=== PATIENT | female | born 1965 | race Caucasian/White ===

== ENCOUNTER 2019-10-01 09:20 | Outpatient (CLI) | payer BC, SELFPAY ==
--- NOTE | ~2019-10-01 | MM_ITS ---
EXAMINATION: MM screening silvestre BI w talia HISTORY: Screening mammogram TECHNIQUE: Craniocaudal and mediolateral oblique 3-D tomosynthesis images were obtained and synthetic 2-D images were generated. CAD analysis was submitted and interpreted. COMPARISON: Comparison to multiple prior studies sequentially, with oldest reviewed study dated 03/31. BREAST PARENCHYMAL COMPOSITION: Comparison to multiple prior studies sequentially, with oldest review ed study dated 04/16/2014. FINDINGS: There is no evidence of suspicious mass, calcification, or architectural distortion to sugg est malignancy in either breast. There has been no suspicious interval change. IMPRESSION: 1. No mammographic evidence of malignancy. 2. Recommend routine screening mammography in one year. BI-RADS Category 1: Negative Reviewed, dictated and finalized at location A.
== END 2019-10-01 09:21 | disposition home or self-care (01) ==
LOC: ANHIMG 09:27
PROVIDERS: Visit Provider Obstetrics & Gynecology
DX: Z12.31 Encounter for screening mammogram for malignant neoplasm of breast (principal)
CPT/HCPCS: 77063; 77067

== ENCOUNTER 2020-10-27 07:26 | Outpatient (CLI) | payer OTHER, SELFPAY ==
--- NOTE | ~2020-10-27 | MM_ITS ---
EXAMINATION: MM screening silvestre BI w talia HISTORY: Screening TECHNIQUE: Craniocaudal and mediolateral oblique 3-D tomosynthesis images were obtained and synthetic 2-D images were generated. CAD analysis was submitted and interpreted. COMPARISON: Comparison to multiple prior studies sequentially, with oldest reviewed study dated 06/2015. BREAST PARENCHYMAL COMPOSITION: The breasts are heterogeneously dense, which may obscure small masses . FINDINGS: There is no evidence of suspicious mass, calcification, or architectural distortion to sugg est malignancy in either breast. There has been no suspicious interval change. IMPRESSION: 1. No mammographic evidence of malignancy. 2. Recommend routine screening mammography in one year. BI-RADS Category 1: Negative Reviewed, dictated and finalized at location A.
== END 2020-10-27 07:27 | disposition home or self-care (01) ==
LOC: ANHIMG 07:28
PROVIDERS: Visit Provider Obstetrics & Gynecology
DX: Z12.31 Encounter for screening mammogram for malignant neoplasm of breast (principal)
CPT/HCPCS: 77063; 77067

== ENCOUNTER 2023-11-16 09:20 | Outpatient (CLI) | payer OTHER, SELFPAY ==
--- NOTE | ~2023-11-16 | MM_ITS ---
EXAMINATION: MM screening silvestre BI w talia HISTORY: Screening TECHNIQUE: Craniocaudal and mediolateral oblique 3-D tomosynthesis images were obtained and synthetic 2-D images were generated. CAD analysis was submitted and interpreted. COMPARISON: Comparison to multiple prior studies sequentially, with oldest reviewed study dated 06/2015. BREAST PARENCHYMAL COMPOSITION: Not dense: There are scattered areas of fibroglandular density. FINDINGS: There is no evidence of suspicious mass, calcification, or architectural distortion to sugg est malignancy in either breast. There has been no suspicious interval change. IMPRESSION: 1. No mammographic evidence of malignancy. 2. Recommend routine screening mammography in one year. BI-RADS Category 1: Negative Reviewed, dictated and finalized at location B.
== END 2023-11-16 09:21 | disposition home or self-care (01) ==
LOC: ANHIMG 09:21
PROVIDERS: PCP Family Medicine; Visit Provider Obstetrics & Gynecology
DX: Z12.31 Encounter for screening mammogram for malignant neoplasm of breast (principal)
CPT/HCPCS: 77063; 77067

== ENCOUNTER 2023-12-27 06:50 | Day surgery (SDC) | payer OTHER, SELFPAY ==
[2023-11-10 07:04] VITALS: BMI 25.0
[2023-12-14 08:07] VITALS: BMI 24.9
--- NOTE | 2023-12-26 10:06 | WPDANESEPPF ---
Anes - Initial Pre Proc Eval Procedure: Operation Date: 12/27/23 08:30 Proposed Procedures p Diagnostic Colonoscopy - Colin Lorenzo MD Date/Time: 12/26/23 10:06 Surgeon: Colin Lorenzo MD Pre Op Diagnosis: Family HX of polyps Patient Data Age: 58 Gender: F Height: 1.65 m Weight: 68 kg Allergies Allergy/AdvReac Type Severity Reaction Status Date / Time No Known Allergies Allergy Verified 12/27/23 07:08 Home Medications Medication Instructions Recorded Confirmed Type sodium,potassium,mag sulfates 17.5 See Rx Instructions PO .COMPLEX 11/09/23 12/14/23 Rx gram-3.13 gram-1.6 gram oral soln #354 mL (Suprep Bowel Prep Kit) Patient hx anesthesia problems: none Family hx anesthesia problems: none Results Review: All pre-operative results and documents have been reviewed as part of the pre-operative evaluation. [facility] Social History Social History Smoking status: Never smoker Alcohol intake: current Substance use: never Substance use type: does not use Living arrangements: with family Spiritual care concerns: No Anes - Eval Final PreProcedure Day of Procedure 12/26/23 10:06 Patient weight: overweight Heart: regular rate and rhythm Lungs: clear to auscultation Airway: Mallampati scale class II Neurological: alert and oriented Last oral intake: >/= 8 hours ASA classification: I Emergent: no Anesthetic plan: proceed Anesthesia type and monitoring: general GIVS and standard monitoring Results Review: All pre-operative results and documents have been reviewed as part of the pre-operative evaluation. Informed Consent: The patient's anesthetic plan and its attendant risks and benefits were discussed with the patient/family/POA. Questions were solicited and answers provided to the satisfaction of the patient/family/POA.
[2023-12-27 07:17] VITALS: BP 116/73; PULSE 83; RESP 20; TEMP 36.8; O2SAT 100
[2023-12-27] MEDS: LACTATED RINGERS 1,000 ML 150 ML IV CONT (07:38)
--- NOTE | 2023-12-27 07:53 | PM.HPGS ---
History of Present Illness History of Present Illness Consent: Risks, benefits, and alternatives have been discussed and questions answered. Patient agrees to proceed with procedure. Chief complaint: Family HX of polyps Narrative: Mery De Anda is a 58 year old female presents for screening colonoscopy. Patient's sister had colon polyps. Patient reports bowel movements are normal. Patient denies abdominal pain. She has had no bleeding. Previous colonoscopy in 2016 was unremarkable. Patient presents today for new patient screening. Review of Systems Review of Systems: All systems reviewed & are unremarkable except as noted in HPI and below PMFSH Social History Social History Smoking status: Never smoker Alcohol intake: current Substance use: never Substance use type: does not use Living arrangements: with family Spiritual care concerns: No Meds Home Medications and Allergies Home Medications Medication Instructions Recorded Confirmed Type sodium,potassium,mag sulfates 17.5 See Rx Instructions PO .COMPLEX 11/09/23 12/14/23 Rx gram-3.13 gram-1.6 gram oral soln #354 mL (Suprep Bowel Prep Kit) Allergies Allergy/AdvReac Type Severity Reaction Status Date / Time No Known Allergies Allergy Verified 12/27/23 07:08 Vital Signs Vital Signs - 24 hr 12/27/23 07:17 Temperature 98.2 F Pulse Rate 83 Respiratory Rate 20 Blood Pressure 116/73 Pulse Oximetry 100 Oxygen Delivery Room Air Exam Narrative: Physical exam reveals patient to be alert. Vital signs stable. HEENT exam is unremarkable. Patient is anicteric. Lungs are clear to auscultation and percussion. Is without murmur or extra sounds. Abdomen bowel sounds are present soft nontender with no organomegaly. Digital external rectal exam normal. Assessment and Plan Assessment and plan (1) Family history of colonic polyps: Code(s): Z83.719 - Family history of colon polyps, unspecified Status: Acute Assessment and Plan: Patient's sister had colon polyps. Plan for patient to have surveillance colonoscopy at 5 year intervals.
[2023-12-27 09:06] VITALS: BP 109/69; PULSE 70; RESP 16; O2SAT 100
[2023-12-27 09:16] VITALS: BP 107/80; BP 120/73; PULSE 54; PULSE 59; RESP 15; RESP 16; O2SAT 100
--- NOTE | 2023-12-27 11:34 | WPDANESPN ---
Anes - Prog Note Post-Op Date/Time: 12/27/23 11:34 Cardiovascular status: normal Respiratory status: normal Airway patency: baseline Mental status: baseline Post-Op hydration status: normal Vital Signs: Last Vital Signs Temp 36.8 C 12/27/23 07:17 Pulse 54 L 12/27/23 09:16 Resp 15 12/27/23 09:16 BP 120/73 12/27/23 09:16 Pulse Ox 100 12/27/23 09:16 O2 Del Method Room Air 12/27/23 09:16 Pain Score (VAS): 0 I/O: Intake & Output 12/26/23 12/27/23 12/27/23 23:59 07:59 15:59 Intake Total 500 Balance 500 Post-procedural complaints: none Patient Feedback: Patient satisfied with anesthetic care. Other Findings: Patient vital signs back to baseline. Patient denies nausea and vomiting. Patient's pain under control. Patient OK for discharge.
== END 2023-12-27 09:42 | disposition home or self-care (01) ==
PROVIDERS: PCP Family Medicine; Visit Provider Internal Medicine Gastroenterology
PROC: 0DJD8ZZ Inspection of Lower Intestinal Tract, Via Natural or Artificial Opening Endoscopic (ICD-10-PCS; CPT 45378; principal; 2023-12-27 08:30)
DX: Z83.718 Family history of other colon polyps (principal); K64.8 Other hemorrhoids
CPT/HCPCS: 45378

== ENCOUNTER 2024-12-30 13:20 | Emergency (ER) | payer OTHER, SELFPAY ==
[2024-12-30] VITALS (8 sets, daily range): BP systolic 108–135; BP diastolic 63–85; PULSE 67–87; RESP 9–23; TEMP 36.4; O2SAT 98–100
--- NOTE | ~2024-12-30 | XR_ITS ---
EXAMINATION: XR wrist LT 2V DATE: 12/30/2024 15:15 INDICATION: Postreduction left wrist fracture TECHNIQUE: Posteroanterior and lateral views of the left wrist were obtained. COMPARISON: none FINDINGS: Again seen is a comminuted fractures of the distal left radius with decrease in now for degree dorsal tilt of the distal articular surface. Approximately 8 mm dorsal displacement of the main distal fragment remains unchanged. On the current study there does appear to be a nondisplaced fracture plane extending to involve the distal articular surface without significant fracture gap or incongruity. Slight decrease in now 5 mm distal/radial distraction of an ulnar styloid avulsion fracture fragment. No new fractures identified. Wire mesh likely retraction devices about the thumb and fifth digit. IMPRESSION: 1. Decreased dorsal angulation with unchanged posterior displacement of a comminuted fractures of the distal left radius with nondisplaced intra-articular fracture plane which was not appreciated on the prior radiographs. 2. Decrease in now mild distraction of an ulnar styloid avulsion fracture. Reviewed, dictated and finalized at location A. IMPRESSION: 1. Decreased dorsal angulation with unchanged posterior displacement of a commi nuted fractures of the distal left radius with nondisplaced intra-articular fra cture plane which was not appreciated on the prior radiographs. 2. Decrease in now mild distraction of an ulnar styloid avulsion fracture.
--- NOTE | ~2024-12-30 | XR_ITS ---
EXAMINATION: XR wrist LT min 3V DATE: 12/30/2024 13:43 INDICATION: Left wrist injury TECHNIQUE: Posteroanterior, oblique, and lateral views of the left wrist were obtained. COMPARISON: none FINDINGS: Distal left radial fracture without definitive intra-articular component. This includes an oblique fracture plane extending across the distal metaphyseal region with comminution along the posterior cortex. The distal articular fragment is displaced 1 cm dorsally and dorsally angulated. There is also a radial angulation with with 1 degree radial inclination. A degree distal and radial distraction of an ulnar styloid avulsion fracture fragment. 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 IMPRESSION: 1. Dorsally displaced and angulated comminuted extra articular fracture of the distal left radius. 2. 8 mm distraction of an ulnar styloid avulsion fracture Reviewed, dictated and finalized at location A.
--- OUTSIDE RECORDS SUMMARY | 2024-12-30 13:22 | XMS_ITS | Clinical Summary ---
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 Gender Identity Not on file Sexual Orientation Not on file Plan of Treatment Health Maintenance Due Date Last Done Comments Cervical Cancer Screening Pa p Smear (Age 30 to 64) Every 3 Years 1967 Colorectal Cancer Screening Colonoscopy (10 Years) 1967 Annual Physical 1970 Hepatitis C 1985 DTaP, Tdap and Td Vaccines ( 1 - Tdap) 1986 Hepatitis B Vaccines (1 of 3 - 19+ 3-dose series) 1986 Cervical Cancer Screening Pa p with HPV Testing (Age 30 to 64) Every 5 Years 1997 Cervical Cancer Screening wi th HPV 1997 Mammogram Screening 2007 Pneumococcal Vaccine: 50+ Years (1 of 1 - PCV) 2017 Zoster Vaccines (1 of 2) 2017 COVID-19 Vaccine ( - 2023-2 5 season) 2023 05/08/2020, 04/17/2020 Meningococcal B Vaccine Aged Out No l onger eligible based on patient's age to complete this topic Meningococcal Vaccine Aged Out No anais suma eligible based on patient's age to complete this topic RSV Immunizations Under 20 Months Aged Out No longer eligible b ased on patient's age to complete this topic
--- OUTSIDE RECORDS SUMMARY | 2024-12-30 13:22 | XMS_ITS | Clinical Summary ---
Author Organization [facility] Address [address] [place] [address] Care Team Providers Care Ad Setter Name Role Phone Caesar Juarez MD Primary Care Provider Source Comments [facility],non-owned Affiliates and Associated Physician Practices is amultiple site organization consisting of ambulatory clinics and hospital sitesin [place], [place], [place] and [place]. This disclosure is being madepursuant to the Care Everywhere program and may not contain all information available regarding this patient. Last updated 18.[employer] Allergies No known active allergies Medications * Be aware that medications may not be up to date on this document. Alwaysverify current medications with the patient. Fluticasone Propionate (FLONASE ALLERGY RELIEF NA) Active Active Problems No known active problems Family History Medical History Relation Name Comments Arthritis - Osteo Father Other - Cardiac Father A FIB Arthritis - Osteo Mother Relation Name Status Comments Father Mother Social History Tobacco Use Types Packs/Day Years Used Date Smoking Tobacco: Never Smokeless Tobacco: Never Comments No Sex and Gender Information Value Date Recorded Sex Assigned at Not on file Legal Sex Female 8:17 AM CDT Gender Identity Not on file Sexual Orientation Not on file Last Filed Vital Signs Vital Sign Reading Time Taken Comments Blood Pressure 110/70 03/16/2021 9:15 AM EXTRUDER TENDER Pulse 76 03/16/2021 9:15 AM EXTRUDER TENDER Temperature 37 C (98.6 F) 03/16/2021 9:15 AM EXTRUDER TENDER Respiratory Rate 17 03/16/2021 9:15 AM EXTRUDER TENDER Oxygen Saturation 98% 03/16/2021 9:15 AM EXTRUDER TENDER Inhaled Oxygen Concentration - - Weight 62.1 kg (137 lb) 03/16/2021 9:15 AM EXTRUDER TENDER Height 165.1 cm (5' 5) 03/16/2021 9:15 AM EXTRUDER TENDER Body Mass Index 22.8 03/16/2021 9:15 AM EXTRUDER TENDER Plan of Treatment Health Maintenance Due Date Last Done Comments COLOGUARD (AGES 45-75) - COLON CA SCREENING 1967 COLON MONITORING 1967 COLONOSCOPY - COLON CA SCREENING 1967 CT COLONOGRAPHY - COLON CA SCREENING 1967 Colorectal Cancer Screening 1967 FIT - COLON CA SCREENING 1967 FLEX SIG - COLON CA SCREENING 1967 LIPID TESTING 1967 MAMMOGRAM 1967 HIV SCREENING 1982 HEPATITIS C SCREENING 05/28/1985 DTAP/TDAP/TD VACCINES (1 - Tdap) 1986 HEPATITIS B VACCINE (1 of 3 - 19+ 3-dose series) 1986 PNEUMOCOCCAL VACCINE 50+ (1 of 1 - PCV) 2017 ZOSTER VACCINE (1 of 2) 2017 COVID-19 VACCINE (3 - season) 2023 05/08/2020, 04/17/2020 DEPRESSION SCREENING 05/01/2024 INFLUENZA VACCINE (#1) 2024 , 02/01/2019, 02/11/2018, Additional history exists HIB VACCINE Aged Out No longer eligi ble based on patient's age to complete this topic HPV VACCINE Aged Out No longer eligi ble based on patient's age to complete this topic MENINGOCOCCAL (Group B) VACCINE SHARED DECISION-MAKING Aged Out No longer eligible based on patient's age to complete this topic MENINGOCOCCAL GROUPS A/C/Y/W VACCINE Aged Out No longer eligible based on patient's age to complete this topic Insurance [employer] Care Teams Ad Setter Relationship Specialty Start Date End Date Caesar Juarez MD [facility] [place] [address] PCP - General Family Medicine 07/31/18
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
[2024-12-30] MEDS: MORPHINE SULFATE (*CRX) 4 MG/ML INJ IV PUSH ×2 (14:39→15:08)
[2024-12-30] MEDS: SODIUM CHLORIDE 0.9% IV 1,000 ML 999 ML IV CONT (14:39)
[2024-12-30] MEDS: diazePAM INJ (*CRX) 10 MG/2 ML SYRINGE 5 MG IV PUSH (14:49)
[2024-12-30] MEDS: HYDROcodone/acetaminophen (*CRX) 5-325 MG TABLET 1 TAB PO (16:06)
== END 2024-12-30 16:08 | disposition home or self-care (01) ==
PROVIDERS: Emergency Provider Registered Nurse; PCP Family Medicine
DX: S69.92XA Unspecified injury of left wrist, hand and finger(s), initial encounter (principal); S52.572A Other intraarticular fracture of lower end of left radius, initial encounter for closed fracture; S52.612A Displaced fracture of left ulna styloid process, initial encounter for closed fracture; V18.0XXA Pedal cycle driver injured in noncollision transport accident in nontraffic accident, initial encounter
CPT/HCPCS: 25624; 73100; 73110; 96374; 96375; 96376; 99285; A4565; A9270; J2270; J3360; J7030

== ENCOUNTER 2025-02-19 14:12 | Outpatient (CLI) | payer OTHER, SELFPAY ==
--- NOTE | ~2025-02-19 | MM_ITS ---
EXAMINATION: MM screening [facility] BI w talia HISTORY: Screening TECHNIQUE: Craniocaudal and mediolateral oblique 3-D tomosynthesis images were obtained and synthetic 2-D images were generated. CAD analysis was submitted and interpreted. COMPARISON: Comparison to multiple prior studies sequentially, with oldest reviewed study dated 07/26/2016. BREAST PARENCHYMAL COMPOSITION: Not dense: There are scattered areas of fibroglandular density. FINDINGS: There is no evidence of suspicious mass, calcification, or architectural distortion to suggest malignancy in either breast. There has been no suspicious interval change. IMPRESSION: 1. No mammographic evidence of malignancy. 2. Recommend routine screening mammography in one year. BI-RADS Category 1: Negative Reviewed, dictated and finalized at location O.
--- OUTSIDE RECORDS SUMMARY | 2025-02-19 18:15 | XMS_ITS | Clinical Summary ---
Author Organization [employer] Address [address] [place] [address] Care Team Providers Care Environmental Services Supervisor Name Role Phone Caesar Juarez MD Primary Care Provider [phone] Source Comments [employer] [employer],non-owned Affiliates and Associated Physician Practices is amultiple site organization consisting of ambulatory clinics and hospital sitesin [place], [place], [place] and [place]. This disclosure is being madepursuant to the Care Everywhere program and may not contain all information available regarding this patient. Last updated 18.[facility] Allergies No known active allergies Medications * [...] Comments Blood Pressure 110/70 03/16/2021 9:15 AM COMPLAINT CLERK Pulse 76 03/16/2021 9:15 AM COMPLAINT CLERK Temperature 37 C (98.6 F) 03/16/2021 9:15 AM COMPLAINT CLERK Respiratory Rate 17 03/16/2021 9:15 AM COMPLAINT CLERK Oxygen Saturation 98% 03/16/2021 9:15 AM COMPLAINT CLERK Inhaled Oxygen Concentration - - Weight 62.1 kg (137 lb) 03/16/2021 9:15 AM COMPLAINT CLERK Height 165.1 cm (5' 5) 03/16/2021 9:15 AM COMPLAINT CLERK Body Mass Index 22.8 03/16/2021 9:15 AM COMPLAINT CLERK Plan of Treatment Health Maintenance Due Date [...] 2017 ZOSTER VACCINE (1 of 2) 2017 DEPRESSION SCREENING 05/01/2024 COVID-19 VACCINE (3 - 2024- season) 2024 05/08/2020, 04/17/2020 INFLUENZA VACCINE (#1) 2024 , 02/01/2019, 02/11/2018, [...] patient's age to complete this topic Insurance [facility] Care Teams Environmental Services Supervisor Relationship Specialty Start Date End Date Caesar Juarez MD [facility] [place] [address] PCP - General Family Medicine 07/31/18
--- OUTSIDE RECORDS SUMMARY | 2025-02-19 18:15 | XMS_ITS | Clinical Summary ---
Author Organization [facility] Address [facility] [place] [address] Care Team Providers Care Qualitative Field Project Manager Name Role Phone Caesar Juarez MD Primary Care Provider [phone] Encounters Date Type Department Care Team Description 02/11/2025 1:26 PM CDT - 02/11/2025 11:59 PM CDT Hospital Encounter [facility] [place] [address] Claudia Castillo MD Pratt, Robin M, OTR Discharge Disposition: Home or Self Care (Routine Discharge) 02/11/2025 Travel 02/07/2025 9:30 AM CDT Office Visit [facility] Occupational Therapy [address] [place] [address] Claudia Castillo MD Pratt, Robin M, OTR Distal Radius Fx 02/07/2025 Travel 01/31/2025 9:30 AM CDT Office Visit [facility] Occupational Therapy [address] [place] [address] Claudia Castillo MD Pratt, Robin M, OTR Wrist Injury 01/31/2025 Travel 01/21/2025 7:19 AM CDT - 01/21/2025 11:59 PM CDT Hospital Encounter [facility] [place] [address] Claudia Castillo MD Pratt, Robin M, OTR Discharge Disposition: Home or Self Care (Routine Discharge) 01/21/2025 Travel 12/31/2024 12:10 PM CDT - 12/31/2024 11:59 PM CDT Hospital Encounter [facility] Cardiopulmonary Services [id number] [place] [id number] Jaden Jimenez MD Discharge Disposition: Home or Self Care (Routine Discharge) 12/31/2024 12:06 PM CDT - 12/31/2024 12:09 PM CDT Hospital Encounter [facility] [address] [place] [phone] Jaden Jimenez MD Discharge Disposition: Home or Self Care (Routine Discharge) 12/31/2024 12:00 PM CDT - 12/31/2024 12:05 PM CDT Hospital Encounter [address] [address] aJden Jimenez MD Discharge Disposition: Home or Self Care (Routine Discharge) 12/31/2024 Orders Only [address] [address] Jaden Jimenez MD 12/31/2024 Travel from Last 3 Months Immunizations Immunization Administration Dates Next Due PFIZER COVID-19 (ORIGINAL FO RMULATION, PURPLE CAP) mRNA, LNP-S, PF, 30 MCG/0.3 ML DOSE 05/08/2020,04/17/2020 Social History Tobacco Use Types Packs/Day Years Used Date Smoking Tobacco: Never Assessed Comments Unknown Sex and Gender Information Value Date Recorded Sex Assigned at Female 12/31/2024 11:52 AM CDT Legal Sex Female 12:50 PM [employer]CH[employer] SUPER[employer] Gender Identity Not on file Sexual Orientation Not on file Plan of Treatment Upcoming Encounters Date Type Department Care Team (Late st Contact Info) Description 02/21/2025 11:15 AM CDT Office Visit [facility] Occupational Therapy [address] [place] [address] Claudia Castillo MD [address] [facility] [address] [place] [address] Jose Luis Nicole, [place] [address] 02/28/2025 10:15 AM CDT Office Visit [facility] Occupational Therapy [address] [place] [address] Claudia Castillo MD [address] [place] [address] [place] [address] Jose Luis Nicole, [place] [address] 03/07/2025 11:15 AM LUNCHROOM SUPERVISOR Office Visit [facility] Occupational Therapy [address] [place] [address] Claudia Castillo MD [address] [place], [place] [id number] [place] [address] Jose Luis Nicole, [place] [address] 03/14/2025 11:15 AM LUNCHROOM SUPERVISOR Office Visit [facility] Occupational Therapy [address] [place] [address] Claudia Castillo MD [address] [place] [address] [place] [address] Jose Luis Nicole, [place] [address] 03/21/2025 11:15 AM LUNCHROOM SUPERVISOR Office Visit [facility] Occupational Therapy [address] [place] [address] Claudia Castillo MD [address] [facility] [address] [place] [address] Jose Luis Nicole, OTR [place] [address] Health Maintenance Due Date Last Done Comments Cervical Cancer Screening Pap Smear (Age 30 to 64) Every 3 Years 1967 Colorectal Cancer Screening Colonoscopy (10 Years) 1967 Annual Physical 1970 Hepatitis C 1985 DTaP, Tdap and Td Vaccines (1 - Tdap) 1986 Hepatitis B Vaccines (1 of 3 - 19+ 3-dose series) 1986 Cervical Cancer Screening Pap with HPV Testing (Age 30 to 64) Every 5 Years 1997 Cervical Cancer Screening with HPV 1997 Mammogram Screening 2007 Pneumococcal Vaccine: 50+ Years (1 of 1 - PCV) 2017 Zoster Vaccines (1 of 2) 2017 COVID-19 Vaccine ( - season) 2024 06/15/2021, 05/08/2020, 04/17/2020 Influenza Adult (#1) 2025 02/09/2023, 01/27/2020, 02/01/2019, Additional history exists Hepatitis A Vaccines Aged Out No long er eligible based on patient's age to complete this topic Meningococcal B Vaccine Aged Out No l onger eligible based on patient's age to complete this topic Meningococcal Vaccine Aged Out No anais suma eligible based on patient's age to complete this topic RSV Immunizations Under 20 Months Aged Out No longer eligible based on patient's age to complete this topic Procedures Procedure Name Priority Date/Time Associated Diagnosis Comments CT WRIST LT WO CON STAT 12/31/2024 12 :44 PM CDT Left wrist fracture ECG 12-LEAD Routine 12/31/2024 12:25 PM CDT Preop cardiovascular exam C-REACTIVE PROTEIN Routine 12/31/2024 12 :10 PM CDT Pre-op testing COMPREHENSIVE METABOLIC PANEL Routine 12/31/2024 12:10 PM CDT Pre-op testing CBC, AUTO, NO DIFF Routine 12/31/2024 12 :10 PM CDT Pre-op testing from Last 3 Months Results * CT WRIST LT WO CON (12/31/2024 12:44 PM CDT) Anatomical Region Laterality Modality Wrist Computed Tomogra phy 12/31/2024 1:10 PM CDT Impressions 12/31/2024 1:15 PM CDT IMPRESSION: 1) Acute displaced comminuted intra-articular fracture distal radius. 2. Acute ulnar styloid avulsion. Ordered By: JADEN JIMENEZ Interpreted By: Clay Guerrero MD, 12/31/2024 1:10 PM Narrative 12/31/2024 1:15 PM CDT [address] [place] [address] Examination: CT WRIST LT WO CON Exam time: 12/31/2024 12:09 PM Clinical history: Trauma yesterday Comparison: None Technique: Axial images obtained through the left wrist without contrast using low-dose CT technique. Sagittal and coronal reconstruction. Findings: Images demonstrate diffuse soft tissue swelling about the wrist. There is an acute comminuted displaced fracture of the distal radial metaphysis with intra-articular extension. There is mild dorsal displacement of the distal fragment with mild dorsal tilt of the distal radial articular surface. There is an acute appearing avulsion of the ulnar styloid. No other evidence of fracture or dislocation is demonstrated Procedure Note Clay Guerrero MD - 12/31/[address] [place] [address] Examination: CT WRIST LT WO CON Exam time: 12/31/2024 12:09 PM Clinical history: Trauma yesterday Comparison: None Technique: Axial images obtained through the left wrist without contrastusing low-dose CT technique. Sagittal and coronal reconstruction. Findings: Images demonstrate diffuse soft tissue swelling about the wrist.There is an acute comminuted displaced fracture of the distal radialmetaphysis with intra-articular extension. There is mild dorsaldisplacement of the distal fragment with mild dorsal tilt of the distalradial articular surface. There is an acute appearing avulsion of the ulnar styloid. No otherevidence of fracture or dislocation is demonstrated IMPRESSION: 1) Acute displaced comminuted intra-articular fracture distal radius. 2. Acute ulnar styloid avulsion. Ordered By: JADEN JIMENEZ Interpreted By: Clay Guerrero MD, 12/31/2024 1:10 PM us Jaden Jimenez MD CT Final Result * ECG 12 lead (12/31/2024 12:25 PM CDT) 12/31/2024 12:2 5 PM CDT Narrative [facility] ([facility] RAD - 12/31/2024 3:42 PM CDT [facility] Test Date: 2024-12-31 Pat Name: MERY CAMARILLOE Department: 85 Room: Gender: Female Ux Architect: : [id number] Requested By: JADEN JIMENEZ Order Number: [id number] Reading MD: Gerson Madrigal Measurements Intervals Hernandez Rate: 63 P: 66 MA: 128 QRS: 54 QRSD: 82 T: 41 QT: 389 QTc: 401 Interpretive Statements SINUS RHYTHM No previous ECG available for comparison Procedure Note Gerson Madrigal MD - 12/31/2024 [facility] Test Date: 2024-12-31 Pat Name: MERY DE ANDA Department: 85 Room: Gender: Female Ux Architect: : [id number] Requested By: JADEN JIMENEZ Order Number: [id number] Reading MD: Gerson Madrigal Measurements Intervals Hernandez Rate: 63 P: 66 MA: 128 QRS: 54 QRSD: 82 T: 41 QT: 389 QTc: 401 Interpretive Statements SINUS RHYTHM No previous ECG available for comparison us Jaden Jimenez MD ECG ORDERABLES Final Result [facility] ([facility]) RAD * (ABNORMAL) COMPREHENSIVE METABOLIC PANEL (12/31/2024 12:10 PM CDT) GLUCOSE 91 70 - 99 MG/DL 12/31/2024 1:32 PM CDT [facility] BUN 12 7 - 18 MG/DL 12/31/2024 1:32 PM CDT [facility] CREATININE S/P/B 0.94 0.55 - 1.02 MG/DL 12/31/2024 1:32 PM CDT [facility] SODIUM S/P/B 141 136 - 145 MMOL/L 12/31/2024 1:32 PM CDT [facility] POTASSIUM S/P/B 3.4(L) 3.5 - 5.1 MMOL/L 12/31/2024 1:32 PM CDT [facility] CHLORIDE S/P/B 104 100 - 108 MMOL/L 12/31/2024 1:32 PM CDT [facility] CO2 30.2 21 - 32 MMOL/L 12/31/2024 1:32 PM CDT [facility] CALCIUM S/P/B 8.6 8.5 - 10.1 MG/DL 12/31/2024 1:32 PM CDT [facility] BILIRUBIN TOTAL S/P/B 0.8 0.2 - 1.2 MG/DL 12/31/2024 1:32 PM CDT [facility] TOTAL PROTEIN S/P/B 7.3 6.4 - 8.2 G/DL 12/31/2024 1:32 PM CDT [facility] ALBUMIN S/P/B 4.2 3.4 - 5.0 G/DL 12/31/2024 1:32 PM CDT [facility] AST 20 15 - 37 U/L 12/31/2024 1:32 PM T [facility] ALT 24 14 - 55 U/L 12/31/2024 1:32 PM CDT [facility] ALKALINE PHOSPHATASE S/P/B 55 50 - 136 U/L 12/31/2024 1:32 PM T [facility] ANION GAP 6.8 5 - 15 MMOL/L 12/31/2024 1:32 PM T [facility] BUN CREATININE RATIO 12.8 6 - 26 12/31/2024 1:32 PM T [facility] A/G RATIO 1.4 1.0 - 2.0 RATIO 12/31/2024 1:32 PM [facility] GFR ESTIMATE 71(L) >90 ML/MIN/1.7 3 M2 12/31/2024 1:32 PM T [facility] Comment: NOTE: eGFR is not calculated for patients <18 years of age. This is an estimated GFR calculation using the new CKD EPI creatinine equation without race and so does not require a correction factor for race. This estimated GFR should not be used for calculating drug doses. 12/31/2024 12:1 0 PM CDT us Jaden Jimenez MD LABORATORY Final Result [facility] [address] [place] [address], [place] [phone] * (ABNORMAL) C-REACTIVE PROTEIN (12/31/2024 12:10 PM CDT) Pathologist [facility] C-REACTIVE PROTEIN 0.38(H) <0.29 mg/dL 12/31/2024 7:48 PM CDT [facility] 12/31/2024 12:1 0 PM CDT Jaden Jimenez MD LABORATORY Final Result [facility] [address] [place] [address], [place] [phone] * (ABNORMAL) CBC, AUTO, NO DIFF (12/31/2024 12:10 PM CDT) Pathologist [facility] WBC 5.99 4.4 - 11.0 x10'3/uL 12/31/2024 1:21 PM CDT [facility] RBC 4.02(L) 4.50 - 5.10 x10'6/uL 12/31/2024 1:21 PM CDT [facility] HGB 12.5 12.3 - 15.3 G/DL 12/31/2024 1:21 PM CDT [facility] HCT 38.2 35.9 - 44.6 % 12/31/2024 1:21 PM CDT [facility] MCV 95.0 80.0 - 96.0 FL 12/31/2024 1:21 PM CDT [facility] MCH 31.1(H) 25.3 - 30.9 PG 12/31/2024 1:21 PM CDT [facility] MCHC 32.7 31.0 - 34.1 G/DL 12/31/2024 1:21 PM CDT [facility] RDW 13.1 12.4 - 15.1 % 12/31/2024 1:21 PM CDT [facility] PLT 210 151 - 353 x10'3/uL 12/31/2024 1:21 PM CDT [facility] MPV 11.0 9.6 - 12.0 FL 12/31/2024 1:21 PM CDT [facility] 12/31/2024 12:1 0 PM CDT us Jaden Jimenez MD LABORATORY Final Result [facility] [address] [facility] [place] [address], [place] [phone] from Last 3 Months Insurance [facility] Care Teams Qualitative Field Project Manager Relationship Specialty Start Date End Date Caesar Juarez MD [address] [place] [id number] PCP - General FAMILY PRACTICE 12/31/24
--- OUTSIDE RECORDS SUMMARY | 2025-02-19 18:16 | XMS_ITS | Clinical Summary ---
Author Organization [facility] Address [address] [place] [id number] Care Team Providers Care Corn Detasseler Name Role Phone Caesar Juarez MD Primary Care Provider [phone] Allergies No known active allergies Medications fluticasone propionate (FLONASE) 50 mcg/actuation nasal sprayIndication s:Allergic Rhinitis Administer 1 spray into each nostril daily as needed for rhinitis Active HYDROcodone-bernice taminophen (NORCO) 5-325 mg per tabletIndicatio ns:Pain Take 1 tablet by mouth every 4 (four) hours as needed for pain 20 tablet 5 Active ibuprofen (ADVIL,MOTRIN) 600 mg tablet Take 1 tablet (600 mg total) by mouth every 6 (six) hours as needed for pain 30 tablet 5 Active Active Problems Problem Noted Date Diagnosed Date Acute pain of left wrist 01/02/2025 Distal radius fracture, left 01/02/2025 Family history of colonic polyps 01/02/2025 Left ulnar fracture 01/02/2025 Encounters Date Type Department Care Team Description 01/16/2025 11:30 AM CDT Therapy [facility] Medicine Occupational Therapy [address] [facility] 6th [place] [address] [place] [address] Sandra Ferguson, CHRISTOPHER Other closed intra-articular fracture of distal end of left radius, initial encounter (Primary Dx) 01/16/2025 9:40 AM CDT Office Visit [facility] Medicine Orthopaedic Surgery [facility] 6th [place] [address] [place] [address] Claudia Castillo MD Other closed intra-articular fracture of distal end of left radius, initial encounter (Primary Dx) 01/16/2025 Orders Only [facility] HAND/WRIST Scanning, Provider 01/03/2025 11:05 AM CDT - 01/03/2025 2:20 PM CDT Surgery [facility] [address] [place] [phone] Claudia Castillo MD OPEN REDUCTION INTERNAL FIXATION RADIUS - DISTAL 01/03/2025 11:02 AM CDT Anesthesia Event [facility] [address] [place] [address] Garret Costa MD Gangloff, Kerry Marie, NP 01/03/2025 9:27 AM CDT - 01/03/2025 2:53 PM CDT Hospital Encounter [facility] [address] [place] [address] Claudia Castillo MD Discharge Disposition: Discharge to home or self care 01/02/2025 9:53 AM CDT - 01/02/2025 11:59 PM CDT Hospital Encounter [facility] [address] [place] [address] Discharge Disposition: Discharge to home or self care 01/02/2025 9:21 AM CDT - 01/02/2025 11:59 PM CDT Hospital Encounter [facility] [address] [place] [address] Diagnosis unknown Discharge Disposition: Discharge to home or self care 01/02/2025 9:17 AM CDT - 01/02/2025 11:59 PM CDT Hospital Encounter [facility] [address] [place] [address] Discharge Disposition: Discharge to home or self care 01/02/2025 9:05 AM CDT Office Visit [facility] Medicine Orthopaedic Surgery [address] [place] [address] [facility] 6th [place] [address] [place] [address] Claudia Castillo MD Acute pain of left wrist (Primary Dx); Other closed intra-articular fracture of distal end of left radius, initial encounter from Last 3 Months Surgical History Surgery Date Site/Laterality Comments COLONOSCOPY 05/01/2023 - 04/30/2024 multiple at [facility] DILATION AND CURETTAGE OF UTERUS 05/01/2001 - 04/30/2002 SECTION 2004 Family History Medical History Relation Name Comments Arthritis Father Atrial fibrillation Father Colitis Father Alcohol abuse Mother Arthritis Mother Hypertension Mother Anesthesia problems Neg Hx Relation Name Status Comments Father Mother Social History Tobacco Use Types Packs/Day Years Used Date Smoking Tobacco: Never Smokeless Tobacco: Never Tobacco Cessation:Counseling Given: Not Answered Alcohol Use Standard Drinks/Week Comments Yes 2 (1 standard drink = 0.6 oz pur e alcohol) AUDIT-C Answer Date Recorded Q1: How often do you have a drink containing alc ohol? 2-3 times a week 01/02/2025 Q2: How many drinks containi ng alcohol do you have on a typical day when you are drinking? 1 or 2 01/02/2025 Q3: How often do you have si x or more drinks on one occasion? Never 01/02/2025 Personal Safety Answer Date Recorded Have you ever been in or are you currently in a harmful physical or emotional relationship or is someone making you feel afraid or unsafe? Denies 01/03/2025 Comments No Sex and Gender Information Value Date Recorded Sex Assigned at Not on file Legal Sex Female 1:30 PM CDT Gender Identity Not on file Sexual Orientation Not on file Obstetrics History Last Filed Vital Signs Vital Sign Reading Time Taken Comments Blood Pressure 127/76 01/03/2025 2:25 PM CDT Pulse 93 01/03/2025 2:30 PM CDT Temperature 36.6 C (97.9 F) 01/03/2025 1:46 PM CDT Respiratory Rate 17 01/03/2025 2:30 PM CDT Oxygen Saturation 94% 01/03/2025 2:30 PM CDT Inhaled Oxygen Concentration - - Weight 73 kg (161 lb) 01/16/2025 9:41 AM CDT Height 165.1 cm (5' 5) 01/16/2025 9:41 AM CDT Body Mass Index 26.79 01/16/2025 9:41 AM CDT Plan of Treatment Health Maintenance Due Date Last Done Comments Breast Cancer Screening-Mammogram 1967 Cervical Cancer Screening 1967 Colon Cancer Screening-Colonoscopy 1967 Depression Screening 1967 Hepatitis C Screening 1967 DTaP/Tdap/Td Vaccine (1 - Tdap) 1978 Hepatitis B Screening 1985 Regular Well Visit/Exam 18-64 1985 Zoster Vaccine (1 of 2) 2017 Covid-19 Vaccine (4 - 2024- season) 2024 06/15/2021, 05/08/2020, 04/17/2020 Influenza Vaccine (#1) 2024 , 02/09/2023, 01/27/2020, Additional history exists Pneumococcal vaccine <65 Aged Out No longer eligible based on patient's age to complete this topic Medical Devices Implanted Type Area Parking Enforcement Technician Device Identifier Shelf Expiration Date Model / Serial / Lot Synthes Screw Bone Cortical St Lcp 2.7x14mm Ss 202.874 - [id number] Implanted:Qty: 3 on 01/03/2025 by Claudia Castillo MD at [facility] [place] Screw Left: Wrist Synthes 202.874 / / Synthes Screw Bone Non Cannulated St Full Thread Locking Lcp Va 2.4x14mm Ss 02.210.114 - [id number] Implanted:Qty: 1 on 01/03/2025 by Claudia Castillo MD at [facility] [place] Screw Left: Wrist Synthes [id number] / / Synthes Plate Bone Compression Locking 6x4 Hole Left Va Lcp 2.4x66mm Ss 02.111641s - [id number] Implanted:Qty: 1 on 01/03/2025 by Claudia Castillo MD at [facility] [place] Left: Wrist Synthes [id number] / / Synthes 2.4mm 18mm Self Tap Lock Variable Angle Stardrive T8 Screw Bone [id number] - [id number] Implanted:Qty: 2 on 01/03/2025 by Claudia Castillo MD at [facility] Left: Wrist Synthes 118 / / Synthes 2.4mm 16mm Self Tap Lock Variable Angle Stardrive T8 Screw Bone 116 - [id number] Implanted:Qty: 3 on 01/03/2025 by Claudia Castillo MD at [facility] [place] Left: Wrist Synthes 116 / / Synthes 2.7mm 5mm 12mm 2.5mm Self Tap Stardrive Cortical T8 Screw Bone 202.872 - [id number] Implanted:Qty: 1 on 01/03/2025 by Claudia Castillo MD at [facility] Left: Wrist Synthes 202.872 / / Explanted Type Area Parking Enforcement Technician Device Identifier Shelf Expiration Date Model / Serial / Lot [employer] Yasmine .045in 9in [place] [employer] Orth[facility] Wire 9298-229ns - [id number] Explanted:Qty: 2 on 01/03/2025 by Claudia Castillo MD at [facility] Wire Left: Wrist [employer] [id number] / / [employer] Yasmine .062in 9in [place] One [employer] Orthopedic Wire 1180-4625ns - [id number] Explanted:Qty: 1 on 01/03/2025 at [facility] Left: Wrist [employer] [id number] S / / Procedures Procedure Name Priority Date/Time Associated Diagnosis Comments SCAN - RADIOLOGY/IMAGING 01/16/2025 FL AN PROCEDURE PLACEHOLDER Routine 01/03/2025 11:34 AM CDT FL AN ELECTIVE SUPRAGLOTTIC AIRWAY Routine 01/03/2025 11:34 AM CDT OPEN REDUCTION INTERNAL FIXATION RADIUS - DISTAL 01/03/2025 11:02 AM CDT Closed fracture of distal end of left radius, unspecified fracture morphology, initial encounter Case Notes 01/02@1232:r/s case to 01/03 at [facility] per Shara via phone and adjust case length to 180 minutes. BR Special Needs Synthes Distal radius plates-2 column FL AN PROCEDURE PLACEHOLDER Routine 01/03/2025 10:56 AM CDT FL CAST SUP SHT ARM SPLINT PLST Routine 01/02/2025 11:22 AM CDT Acute pain of left wrist FL APPLICATION SHORT ARM SPLINT FOREARM-HAND STATIC Routine 01/02/2025 11:22 AM CDT Acute pain of left wrist XR TRANSFER OF OUTSIDE FILMS Routine 01/02/2025 9:[address] OUTSIDE REFERENCE Routine 01/02/2025 9:21 AM CDT Diagnosis unknown MSK CT OUTSIDE REFERENCE Routine 01/02/2025 9:17 AM CDT from Last 3 Months Results * SCAN - RADIOLOGY/IMAGING (01/16/2025) Anatomical Region Laterality Modality Other us Provider Scanning Final Result * FL AN ELECTIVE SUPRAGLOTTIC AIRWAY, FL AN PROCEDURE PLACEHOLDER (01/03/2025 11:34 AM CDT) Alexis De La Vega CRNA - 01/03/2025 11:34 AM CDT Alexis Sultana CRNA 01/03/2025 11:35 AM Airway Patient location: OR Urgency: elective Indications for airway management: anesthesia Difficult airway: no Staff: Supervising provider: Garret Costa MD Placed by: COLD MILL OPERATOR: Alexis Sultana CRNA Airway prep: Preoxygenated: yes Patient position: sniffing Mask difficulty assessment: 0 - not attempted Spontaneous ventilation during airway: absent Sedation level during airway: GA Final airway details: Final airway type: supraglottic airway Final supraglottic airway: IGel SGA size: 4 Number of attempts: 1 Ventilation between attempts: none us Garret Costa MD ANESTHESIA ORDERABLES [facility] Result * FL AN PROCEDURE PLACEHOLDER (01/03/2025 10:56 AM CDT) Garret Woo MD - 01/03/2025 10:56 AM CDT Garret Costa MD 01/03/2025 10:56 AM Peripheral Block Patient location during procedure: pre-op holding Reason for block: post-op pain management per surgeon request Ultrasound image in chart or stored: yes Block type: single shot Laterality: left Block type: brachial - supraclavicular Procedure prep: Preprocedure checklist: patient identified, procedure contraindications assessed, site marked, procedure consent, surgical consent, IV checked, risks, benefits and alternatives discussed, monitors and equipment checked and timeout performed Patient position: sitting and head of bed elevated Procedure performed while patient: sedate with meaningful contact Monitoring: oximetry and ECG Supplemental O2: nasal cannula Prep solution: chlorhexidine/alcohol Skin infiltrated with lidocaine 1%: yes Peripheral nerve block: Technique: ultrasound guided Needle type: short-bevel and echogenic Needle gauge: 21 G Needle length: 80 mm Injection assessment: injection made incrementally with constant monitoring, local visualized surrounding nerve on ultrasound, negative aspiration for heme, no paresthesias noted, normal resistance to injection and see flowsheet for medication details Assessment: Block success: full evaluation pending Events: patient tolerated procedure well with no complications us Garret Costa MD ANESTHESIA ORDERABLES [facility] Result * FL APPLICATION SHORT ARM SPLINT FOREARM-HAND STATIC, FL CAST SUP SHT ARM SPLINT PLST (01/02/2025 11:22 AM CDT) Narrative Ira Chino MA - 01/02/2025 11:22 AM CDT Ira Chino MA 01/02/2025 1:04 PM Ortho Casting/Splinting Documentation Date/Time: 01/02/2025 11:22 AM Performed by: Ira Chino MA Authorized by: Claudia Castillo MD Cast Removed: Yes (splint) Cast Applied: Yes (splint) Location: Wrist Wrist: L wrist Splint type: Volar splint Supplies: Plaster Additional Supplies: Cotton stocking/sleeve and cotton padding Number of plaster rolls used: 3 Patient tolerance of procedure: Tolerated well, no immediate complications Splint care instructions were given. Patient noted understanding. All questions were answered. us Claudia Castillo MD IN CLINIC/BEDSIDE ORDERA BLES Final Result * XR Outside Reference (01/02/2025 9:53 AM CDT) Impressions [facility] - 01/02/2025 9:53 AM CDT These images are for Reference purposes only and have not been reviewed by [facility] Radiology. There will be no report generated by a [facility] Radiologist. Narrative [facility] - 01/02/2025 9:53 AM CDT EXAMINATION: Images For Reference Purposes Only us Claudia Castillo MD IMG XR PROCEDURES Final Result Performing Organization Address [facility] Co de Phone Number [email or web address] * MSK CT Outside Reference (01/02/2025 9:21 AM CDT) Impressions [facility] - 01/02/2025 9:21 AM CDT These images are for Reference purposes only and have not been reviewed by [facility] Radiology. There will be no report generated by a [facility] Radiologist. Narrative [facility] - 01/02/2025 9:21 AM CDT EXAMINATION: Images For Reference Purposes Only us Claudia Castillo MD IMG CT PROCEDURES Final Result Performing Organization Address [facility] de Phone Number [email or web address] * MSK CT Outside Reference (01/02/2025 9:17 AM CDT) Impressions [facility] - 01/02/2025 9:17 AM CDT These images are for Reference purposes only and have not been reviewed by [facility] Radiology. There will be no report generated by a [facility] Radiologist. Narrative [facility] - 01/02/2025 9:17 AM CDT EXAMINATION: Images For Reference Purposes Only us Claudia Castillo MD IMG CT PROCEDURES Final Result Performing Organization Address [facility] Co de Phone Number [facility] from Last 3 Months Insurance [facility] CHOICE PLUS [facility] CHOICE PLUS Care Teams Corn Detasseler Relationship Specialty Start Date End Date Caesar Juarez MD [facility] [place] [address] PCP - General Family Medicine 01/01/25
== END 2025-02-19 14:13 | disposition home or self-care (01) ==
LOC: CHSIMG 14:13
PROVIDERS: PCP Family Medicine; Visit Provider Obstetrics & Gynecology
DX: Z12.31 Encounter for screening mammogram for malignant neoplasm of breast (principal)
CPT/HCPCS: 77063; 77067